=== PATIENT | female | born 1960 | race Caucasian/White ===

== ENCOUNTER 2016-06-21 00:28 | Observation (INO) | payer MEDICARE, BC ==
[2016-06-21] MEDS ORDERED: LABETALOL HCL 5 MG/ML VIAL IV ONE (00:44)
[2016-06-21] MEDS ORDERED: ONDANSETRON HCL/PF 2 MG/ML VIAL IV ONE ×2 (01:01→01:35)
[2016-06-21] MEDS ORDERED: ONDANSETRON HCL/PF 2 MG/ML VIAL ONE ×2 (01:02→01:36)
--- NOTE | 2016-06-21 01:15 | ERNOTE ---
Medical Problem HPI - Narrative Date of Service: 06/21/16 - General Chief Complaint: Screening, Blood Pressure Time Seen by Provider: 06/21/16 00:44 Source: patient Exam Limitations: no limitations - Immun/Allergies/Home Medications Immunizations: IMMUNIZATION HX Immunizations Up to Date Yes History of Influenza Vaccine Yes Hx Pneumococcal Vaccination No Allergies/Adverse Reactions: Allergies No Known Allergies Allergy (Verified 08/07/15 07:55) Home Medications: HOME MEDICATIONS Clonidine HCl [Catapres] 0.4 mg PO TID 06/06/13 [Last Taken Unknown] HYDROcodone/ACETAMINOPHEN [[place] 5-325] 1 tab PO BID PRN 06/06/13 [Last Taken Unknown] Lidocaine [Lidoderm 5%] 1 patch TP DAILY 06/06/13 [Last Taken Unknown] Tramadol HCl [Ultram] 50 mg PO Q6H PRN 06/06/13 [Last Taken Unknown] Atenolol [Tenormin] 100 mg PO BID 04/06/14 [Last Taken Unknown] buPROPion HCL [Wellbutrin Sr, Zyban] 150 mg PO DAILY 04/06/14 [Last Taken Unknown] Diltiazem HCl [Diltiazem 12Hr ER] 60 mg PO BID 07/25/15 [Last Taken Unknown] Furosemide [Lasix] 20 mg PO BID 07/25/15 [Last Taken Unknown] Levothyroxine Sodium [Synthroid] 200 mcg PO DAILY 07/25/15 [Last Taken Unknown] Glucosamine Chondroitin Tab 10/25/15 [Last Taken Unknown] - History of Present History Narrative: 56-year-old female states 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 She noted her blood pressure was elevated. She states her blood pressure normally is 135/80, She arrives to the emergency department with a blood pressure of 262/136 with complaints of headache and nausea. Patient states she has had similar episodes in the past and was hospitalized for 3 days last time. She states she is otherwise in good health and felt well earlier in the day without a cold, cough fever or other constitutional signs or symptoms Timing: constant Severity: moderate Modifying Factors - (Improves): Present: other - nothing Modifying Factors - (Worsens): Present: other - nothing Review of Systems - Review of Systems Constitutional: Present: See HPI EYE: Present: no symptoms reported ENT: Present: no symptoms reported Respiratory: Present: no symptoms reported Cardiology: Present: no symptoms reported Gastrointestinal/Abdominal: Present: no symptoms reported Genitourinary: Present: no symptoms reported Musculoskeletal: Present: no symptoms reported Skin: Present: no symptoms reported Neurological: Present: See HPI, weakness Endocrine: Present: no symptoms reported Hematologic/Lymphatic: Present: no symptoms reported Psych: Present: no symptoms reported - Patient's Past Medical History Patient History - Medical: Headache, Hypothyroidism, Other Patient History - Cancer: Other Patient History - Surgical Procedures: Appendectomy, , D & C, EGD, Hysterectomy, T & A - Social History Living Situations: spouse Smoking Status: Never smoker Have you smoked in the past 12 months: No Do you dip or chew tobacco: No Alcohol Use: none Drug Use: none Physical Exam - Physical Exam General Appearance: Present: alert, mild distress, obese Eye Exam: Normal inspection: bilateral, PERRL: bilateral Ears, Nose, Throat: Present: normal ENT inspection, hearing grossly normal, normal pharynx Neck: Present: normal inspection, nontender Respiratory: Present: no respiratory distress, normal breath sounds, no accessory muscle use, chest nontender, lungs clear Cardiovascular/Chest: Present: no murmur, tachycardia Gastrointestinal/Abdominal: Present: normal bowel sounds, nontender, nondistended, soft, no organomegaly Rectal Exam: Present: deferred Back Exam: Present: normal inspection, normal range of motion, no CVA tenderness , no vertebral tenderness Extremity Exam: Present: normal inspection, non-tender, no edema, normal range of motion Neurological Exam: Present: alert, oriented, normal mood/affect, no motor/ sensory deficits Skin Exam: Present: normal color, warm/dry Lymphatic Exam: Present: no adenopathy ED Progress - Results and Orders Patient's Lab Results:: I have reviewed the patient's lab results. Results and Orders: cbc and chemistries are wnl elevated BNP - Vital Signs Patient's Vital Signs:: I have reviewed the patient's vital signs. Vital Signs: Vital Signs 06/21/16 06/21/16 00:33 01:03 Temperature 36.3 C L Pulse Rate 124 H 104 H Respiratory 16 Rate Blood Pressure 262/136 256/118 O2 Sat by Pulse 97 Oximetry - EKG EKG: supraventricular tachycardia, no ST T wave changes EKG read: Interp. by me - X-Ray X-Ray #1 X-Ray: chest - mild cardiomegaly - Progress/Reassessment Chief Complaint: Screening, Blood Pressure Progress:: Improved Progress Note-Subjective: 06/21/16 02:26 Patient responded to intravenous labetalol but not to an adequate to level and therefore will need to be admitted for further treatment. Her BNP was mildly elevated and CHF may be a component of her hypertension and therefore patient was given 40 mg of Lasix intravenously. CT of the head was done to rule out intracranial bleed or subarachnoid hemorrhage and this appears to be negative Plan - Plan Plan: Patient has responded but only partially to current treatment and therefore she' ll need to be admitted for further treatment. Discussed with the hospitalist Lore Gibbs Departure - Departure Clinical Impression: Hypertensive urgency CHF (congestive heart failure) Qualifiers: Congestive heart failure type: unspecified congestive heart failure type Congestive heart failure chronicity: acute Qualified Code(s): I50.9 - Heart failure, unspecified Cephalgia Qualifiers: Headache type: other vascular headache Qualified Code(s): G44.1 - Vascular headache, not elsewhere classified Disposition: [facility] Condition: Stable Referrals: Curtis Simmons MD [Primary Care Provider] -
[2016-06-21 01:18] LABS: Hematocrit 45.2 % (37.0-47.0); Hemoglobin 14.7 gm/dL (12.5-16.0); Mean Cell Volume 93.8 fl (78-100); Mean Corpuscular Hemoglobin 30.5 pg (27-31); Mean Corpuscular Hgb Conc 32.5 g/dl (32-36); Mean Platelet Volume 9.4 fl (6.0-9.5); Neutrophil # 6.7 K/mm3 (1.3-6.0); Neutrophil % 63.9 % (42-75.0); Platelet Count 279 K/mm3 (150-450); Red Blood Count 4.82 M/mm3 (4.2-5.4); Red Cell Distribution Width 12.8 % (11.5-14.0); White Blood Count 10.5 K/mm3 (4.0-10.5)
[2016-06-21] MEDS ORDERED: MORPHINE SULFATE 2 MG/ML DISP.SYRIN IV ONE (01:36)
[2016-06-21] MEDS ORDERED: MORPHINE SULFATE 4 MG/ML SYRG ONE (01:38)
[2016-06-21 01:39] LABS: Albumin * 3.4 gm/dl (3.4-5.0); Anion Gap 12.5 mmol/L (6.8-13.8); BUN/Creatinine Ratio 13.6 (9.0-21.6); Bilirubin, Total 0.5 mg/dL (0.0-1.1); Ca. Corrected For Albumin 10.2 mg/dL (8.4-10.2); Carbon Dioxide 29.5 mmol/L (24-32.6); Total Protein 7.7 gm/dL (6.2-8.2)
[2016-06-21] MEDS ORDERED: LABETALOL HCL 100 MG in NORMAL SALINE 80 ML IV PRN (01:42)
[2016-06-21] MEDS ORDERED: METOCLOPRAMIDE HCL 5 MG/ML VIAL IV ONE (02:11)
[2016-06-21] MEDS ORDERED: METOCLOPRAMIDE HCL 5 MG/ML VIAL ONE (02:11)
[2016-06-21] MEDS ORDERED: FUROSEMIDE 10 MG/ML VIAL IV ONE (02:19)
[2016-06-21] MEDS ORDERED: FUROSEMIDE 10 MG/ML VIAL ONE (02:22)
[2016-06-21] MEDS ORDERED: MORPHINE SULFATE 2 MG/ML DISP.SYRIN IV PRN (04:39)
[2016-06-21] MEDS ORDERED: ACETAMINOPHEN 325 MG TABLET PO PRN (04:39)
[2016-06-21] MEDS ORDERED: ONDANSETRON HCL/PF 2 MG/ML VIAL IV PRN (04:44)
--- NOTE | 2016-06-21 04:51 | HP ---
<Lore Gibbs - Last Filed: 06/21/16 05:14> Chief Complaint - Chief Complaint Date of Service: 06/21/16 Time of Service: 04:25 Chief Complaint: INGRAM and nausea History of Present Illness: Pt is a 56-year-old female pt of Dr. Mcfarlane with a PMH significant for HTN, hypothyroidism, and remote throat CA. She presented to [facility] ER with complaints of having elevated blood pressure. 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 She noted her blood pressure was elevated when she checked it at home at 262/163, she states her blood pressure normally is 135/80. She took an extra dose of her clonidine 0.4mg and atenolol 100mg at 1030pm without reduction in BP. Denies large salt consumption has been taking medications as prescribed. Denies any other associated symptoms than that already mentioned. Nothing made her symptoms worse or better. Patient states she has had similar episodes 2 in the past about a year and a half apart and was hospitalized for 3 days last time. In the ER she was given 40mg IV lasix and 20mg IV labetolol without reduction in blood pressure followed by 100mg infusion. Chest xray and head CT was without any acute abnormalities. EKG ST rate of 103. Laboratory workup was essentially unremarkable, BNP slightly elevated at 1514. She will be admit to in pt for treatment of hypertensive urgency. - Patient's Past Medical History Patient History - Medical: Headache, Hypothyroidism, Obesity Patient History - Cardiac/Respiratory: Hypertension, Hyperlipidemia Patient History - Cancer: Throat Patient History - Surgical Procedures: Appendectomy, , D & C, EGD, Hysterectomy, Total Knee Replacement, T & A Patient History - Other: None LMP (females 10-50): Menopausal - Family History Mother Family History - Cardiac/Respiratory: CHF Father Family History - Cancer: Lung - Social History Living Situations: spouse Does anyone smoke in the home?: No Smoking Status: Never smoker Have you smoked in the past 12 months: No Do you dip or chew tobacco: No Patient requests Smoking Cessation Consult: No Initiate information on Smoking Cessation: No Alcohol Use: none Drug Use: none - Immunizations Immunizations Up to Date: Yes Hx Pneumococcal Vaccination: No History of Influenza Vaccine: No Review Of Systems (GEN) - Review of Systems Generalized/Overall Review: Present: No Symptoms Reported EENTM: Present: Mouth Pain - dryness Respiratory: Present: No Symptoms Reported Cardiac: Present: No Symptoms Reported Abdominal: Present: Nausea Genitourinary: Present: No Symptoms Reported Musculoskeletal: Present: No Symptoms Reported Neurological: Present: Headache - frontal Skin: Present: No Symptoms Reported Endocrine: Present: No Symptoms Reported Allergies/Adverse Reactions: Allergies Allergy/AdvReac Type Severity Reaction Status Date / Time No Known Allergies Allergy Verified 08/07/15 07:55 Home Medications: HOME MEDICATIONS Clonidine HCl [Catapres] 0.4 mg PO TID 06/06/13 [Last Taken Unknown] HYDROcodone/ACETAMINOPHEN [[place] 5-325] 1 tab PO BID PRN 06/06/13 [Last Taken Unknown] Lidocaine [Lidoderm 5%] 1 patch TP DAILY PRN 06/06/13 [Last Taken Unknown] Tramadol HCl [Ultram] 50 mg PO Q6H PRN 06/06/13 [Last Taken Unknown] Atenolol [Tenormin] 100 mg PO BID 04/06/14 [Last Taken Unknown] Diltiazem HCl [Diltiazem 12Hr ER] 60 mg PO BID 07/25/15 [Last Taken Unknown] Furosemide [Lasix] 20 mg PO BID 07/25/15 [Last Taken Unknown] Levothyroxine Sodium [Synthroid] 200 mcg PO DAILY 07/25/15 [Last Taken Unknown] Glucosamine & Chondroitin Cap cap PO DAILY 10/25/15 [Last Taken Unknown] Exam - Exam Vital Signs: Vital Signs - Last Taken Temp 36.3 C L 06/21/16 00:33 Pulse 96 06/21/16 02:45 Resp 20 06/21/16 02:45 BP 187/89 06/21/16 02:45 Pulse Ox 96 RA 06/21/16 02:45 Constitutional: Present: Alert, Oriented x3, Cooperative, No distress, Morbidly obese ENT Exam: Present: normal ENT inspection, hearing grossly normal Eye Exam: bilateral eye: normal inspection, PERRL Back Exam: Present: no CVA tenderness Respiratory: Present: chest non-tender, normal breath sounds, no respiratory distress, no accessory muscle use, decreased breath sounds Cardiovascular/Chest: Present: normal peripheral pulses, regular rate, rhythm, no chest tenderness, no murmur Peripheral Pulses: dorsalis-pedis (R): 2+, dorsalis-pedis (L): 2+, radial (R): 2 +, radial (L): 2+ Abdomen: Present: Normal bowel sounds, soft, nontender, nondistended, obese Extremity: Present: normal range of motion, non-tender, normal inspection, no pedal edema, no calf tenderness, normal capillary refill Skin Exam: Present: normal color, warm/dry, no cyanosis Neurologic: Present: no motor/sensory deficits, alert, normal mood/affect, oriented x 3 Appearance: Present: appropriate appearance, appropriate insight, neat, no memory impairment Eye contact: Present: cooperative, good eye contact, normal speech Thoughts: Present: normal thought pattern, no apparent hallucination Diagnostic Studies: Laboratory Results Laboratory Tests 06/21/16 06/21/16 06/21/16 01:15 01:15 01:15 WBC 10.5 Hgb 14.7 Hct 45.2 Plt Count 279 Sodium 142 Potassium 4.0 Chloride 104 BUN 16 Creatinine 1.18 AST 19 ALT 29 Alkaline Phosphatase 120 B-Natriuretic Peptide 1514 H TSH Less than 0.007 L Assessment/Plan - Assessment/Plan (1) Hypertensive urgency Assessment: In pt with hyptertensive urgency the blood pressure should usually be lowered to <160/<100 mmHg. However, the mean arterial pressure should not be lowered by more than 25 to 30 percent over this relatively short period of time. Thus, the short-term blood pressure target may need to be above 160/100 mmHg in patients who present with very high pressures. Pt presented with BP of 256/118 at 0100, currently 190's/100's is an acceptable range for now, will slowly lower to less than 160/100 over the remainder of the day. Will continue home medications this am and monitor BP during the day for necessary adjustments. -Atenolol 100mg BID -Clonidine 0.4mg TID -Diltiazem 60mg BID -VS Q2H -Troponin x1 -Continuous telemetry Problem: Acute (2) Nausea Assessment: Stable at this time will continue with PRN zofran, should subside once BP has normalized. Problem: Acute (3) Hypothyroidism Assessment: Stable -Continue Synthroid 200mcg daily -TSH level Problem: Chronic (4) Morbid obesity Problem: Chronic (5) Migraine Assessment: Pt is requesting liquid tylenol for headache, should subside once blood pressure is lowered appropriately. -Tylenol 650mg Q4H PRN -Morphine 4mg Q2H PRN Problem: Acute <Curtis Simmons - Last Filed: 06/21/16 07:50> Immunizations: IMMUNIZATION HX Immunizations Up to Date Yes History of Influenza Vaccine No Hx Pneumococcal Vaccination No Exam - Exam Vital Signs: Vital Signs - Last Taken Temp 36.6 C 06/21/16 06:56 Pulse 95 06/21/16 06:56 Resp 18 06/21/16 06:56 BP 189/73 06/21/16 06:56 Pulse Ox 98 06/21/16 06:56 Diagnostic Studies: Laboratory Results WBC 10.5 K/mm3 (4.0-10.5) 06/21/16 01:15 RBC 4.82 M/mm3 (4.2-5.4) 06/21/16 01:15 Hgb 14.7 gm/dL (12.5-16.0) 06/21/16 01:15 Hct 45.2 % (37.0-47.0) 06/21/16 01:15 MCV 93.8 fl (78-100) 06/21/16 01:15 MCH 30.5 pg (27-31) 06/21/16 01:15 MCHC 32.5 g/dl (32-36) 06/21/16 01:15 RDW 12.8 % (11.5-14.0) 06/21/16 01:15 Plt Count 279 K/mm3 (150-450) 06/21/16 01:15 MPV 9.4 fl (6.0-9.5) 06/21/16 01:15 Immature Gran % (Auto) 0.30 % (0.001-0.429) 06/21/16 01:15 Immature Gran # (Auto) 0.03 K/mm3 (0.000-0.0310) 06/21/16 01:15 Neutrophils % 63.9 % (42-75.0) 06/21/16 01:15 Lymphocytes % 23.5 % (20-51) 06/21/16 01:15 Monocytes % 11.0 % (0.0-9) H 06/21/16 01:15 Eosinophils % 0.8 % (0.0-3.0) 06/21/16 01:15 Basophils % 0.5 % (0.0-1.0) 06/21/16 01:15 Nucleated RBC % 0.0 k/mm3 (0-1) 06/21/16 01:15 Neutrophils # 6.7 K/mm3 (1.3-6.0) H 06/21/16 01:15 Lymphocytes # 2.5 k/mm3 (1.5-3.5) 06/21/16 01:15 Monocytes # 1.2 k/mm3 (0.0-1.0) H 06/21/16 01:15 Eosinophils # 0.1 k/mm3 (0.0-0.7) 06/21/16 01:15 Absolute Basophils 0.1 k/mm3 (0.0-0.1) 06/21/16 01:15 Sodium 142 mmol/L (132-142) 06/21/16 01:15 Plasma Sodium 143 mmol/L (130-142) H 06/21/16 01:15 Potassium 4.0 mmol/L (3.4-4.6) 06/21/16 01:15 Chloride 104 mmol/L (97-106) 06/21/16 01:15 Carbon Dioxide 29.5 mmol/L (24-32.6) 06/21/16 01:15 Anion Gap 12.5 mmol/L (6.8-13.8) 06/21/16 01:15 BUN 16 mg/dL (3-23) 06/21/16 01:15 Creatinine 1.18 mg/dL (0.4-1.4) 06/21/16 01:15 Est GFR (Non-Af Amer) 50 mL/min (60-130) L 06/21/16 01:15 BUN/Creatinine Ratio 13.6 (9.0-21.6) 06/21/16 01:15 Random Glucose 135 mg/dL (70-110) H 06/21/16 01:15 Calcium 10.0 mg/dL (7.9-10.9) 06/21/16 01:15 Calcium Adj for Albumin 10.2 mg/dL (8.4-10.2) 06/21/16 01:15 Total Bilirubin 0.5 mg/dL (0.0-1.1) 06/21/16 01:15 AST 19 U/L (0-48) 06/21/16 01:15 ALT 29 U/L (19-67) 06/21/16 01:15 Alkaline Phosphatase 120 U/L (50-170) 06/21/16 01:15 Troponin I 0.019 ng/ml (0.00-0.10) 06/21/16 01:15 B-Natriuretic Peptide 1514 pg/mL (5-205) H 06/21/16 01:15 Total Protein 7.7 gm/dL (6.2-8.2) 06/21/16 01:15 Albumin 3.4 gm/dl (3.4-5.0) 06/21/16 01:15 TSH Less than 0.007 uIU/mL (0.358-3.74) L 06/21/16 01:15 Assessment/Plan - Procedures Results: The 100 mg infusion referred to in the HPI was Labetolol given in saline slowly IV X1 following the initial 20 mg IV dose. Patient has had headaches since she was in her 30's, but none of her family have headaches (except for her daughter , who got them from her father's side.). Madelyn has had high blood pressure episodes like this in the past. Her headaches are USUALLY in association with this high blood pressure. She has been checked for pheochromocytoma in the past , but this has not been found. Last year she had her uterus and ovaries removed and also a successful distal esophageal dilatation. We will check an echo as an outpatient next week because of her elevated BNP. We will repeat labs including troponin tomorrow morning. We will make the Lasix she takes routine and not prn, increase diltiazem slightly and add spironolactone for her high blood pressure. I personally directed all of [facility]'s care for this patient. I reviewed the record and examined the patient.
[2016-06-21] MEDS ORDERED: ACETAMINOPHEN 160 MG/5 ML BTL PO PRN (05:05)
[2016-06-21] MEDS ORDERED: MORPHINE SULFATE 4 MG/ML SYRG IV PRN (05:11)
[2016-06-21] MEDS ORDERED: FUROSEMIDE 20 MG TABLET PO PRN (06:53)
[2016-06-21] MEDS ORDERED: HYDROcodone/ACETAMINOPHEN 1 EACH TABLET PO PRN (06:53)
[2016-06-21] MEDS ORDERED: traMADol HCL 50 MG TABLET PO PRN (06:53)
[2016-06-21] MEDS ORDERED: LIDOCAINE 1 PATCH ADH..PATCH TP PRN (06:53)
[2016-06-21] MEDS: ENOXAPARIN SODIUM 40 MG/0.4 ML SYRG SC SCH (08:23)
[2016-06-21] MEDS: LEVOTHYROXINE SODIUM 100 MCG TABLET PO SCH (08:25)
[2016-06-21] MEDS: CLONIDINE HCL 0.2 MG TABLET PO SCH ×3 (08:26→17:10)
[2016-06-21] MEDS: ATENOLOL 100 MG TABLET PO SCH ×2 (08:26→20:44)
[2016-06-21] MEDS ORDERED: DILTIAZEM HCL 60 MG CAP.SR.12H PO SCH ×2 (09:00)
[2016-06-21] MEDS ORDERED: DILTIAZEM HCL 90 MG CAP.SR.12H PO SCH (09:00)
[2016-06-21] MEDS ORDERED: SPIRONOLACTONE 25 MG TABLET PO SCH (09:00)
[2016-06-21] MEDS ORDERED: FUROSEMIDE 20 MG TABLET PO SCH (09:00)
[2016-06-21] MEDS: DILTIAZEM HCL 60 MG TABLET PO SCH (20:44)
[2016-06-21] MEDS ORDERED: SENNOSIDES/DOCUSATE SODIUM 1 TAB TABLET PO SCH (21:00)
[2016-06-22 05:46] LABS: Hematocrit 41.3 % (37.0-47.0); Hemoglobin 13.6 gm/dL (12.5-16.0); Mean Cell Volume 93.2 fl (78-100); Mean Corpuscular Hemoglobin 30.7 pg (27-31); Mean Corpuscular Hgb Conc 32.9 g/dl (32-36); Mean Platelet Volume 9.7 fl (6.0-9.5); Neutrophil # 5.5 K/mm3 (1.3-6.0); Neutrophil % 63.6 % (42-75.0); Platelet Count 272 K/mm3 (150-450); Red Blood Count 4.43 M/mm3 (4.2-5.4); Red Cell Distribution Width 12.9 % (11.5-14.0); White Blood Count 8.6 K/mm3 (4.0-10.5)
[2016-06-22 06:04] LABS: ALT 24 U/L (19-67); AST 16 U/L (0-48); Alkaline Phosphatase * 114 U/L (50-170); Anion Gap 13.5 mmol/L (6.8-13.8); BUN/Creatinine Ratio 14.1 (9.0-21.6); Bilirubin, Total 0.8 mg/dL (0.0-1.1); Blood Urea Nitrogen 14 mg/dL (3-23); Ca. Corrected For Albumin 10.3 mg/dL (8.4-10.2); Calcium * 9.8 mg/dL (7.9-10.9); Carbon Dioxide 29.2 mmol/L (24-32.6); Chloride 101 mmol/L (97-106); Glucose * 112 mg/dL (70-110); Potassium 3.7 mmol/L (3.4-4.6); Sodium 140 mmol/L (132-142); Total Protein 6.8 gm/dL (6.2-8.2); Troponin I Less than 0.017 ng/ml (0.00-0.10)
[2016-06-22] MEDS: LEVOTHYROXINE SODIUM 100 MCG TABLET PO SCH (06:32)
[2016-06-22 06:55] VITALS: BP 120/53
--- NOTE | 2016-06-22 07:42 | DS ---
(1) Cephalgia Problem: Acute Qualifiers: Headache type: other vascular headache Qualified Code(s): G44.1 - Vascular headache, not elsewhere classified (2) Hypertensive urgency Problem: Acute (3) Hypothyroidism Problem: Chronic Qualifiers: Hypothyroidism type: acquired Qualified Code(s): E03.9 - Hypothyroidism, unspecified (4) Morbid obesity Problem: Chronic Qualifiers: Obesity type: due to excess calories Qualified Code(s): E66.01 - Morbid ( severe) obesity due to excess calories Description of Stay: Following admission, this patient's headache went away and her blood pressure came down to almost subnormal. She has headaches perhaps 2 times per year. As she recalls, she has never had a high blood pressure episode that was not associated with the headache. The headache starts first, then the high blood pressure then the other symptoms. I think the next time around, we ought to try making her headache go away and see if her blood pressure comes down rather than working on making her blood pressure come down and therefore seeing if her headache goes away. It was noted on this admission that her TSH was very low. We are treating hypothyroidism with pharmacologic thyroid medication, so we will decrease the dose and follow-up with a thyroid blood test in one month. She will follow-up with me in the office in one week. Procedures Performed: none Discharge Disposition: Home self care Disposition: Home self-care Condition: Stable Discharge Activity: Activity as tolerated Discharge Diet: General/regular food Referrals: Curtis Simmons MD [Primary Care Provider] - Problem Oriented Discharge Instructions to Patient/Family: Migraine Headache, [id number], Hypertension, [id number], Hypothyroidism Additional Patient Instructions (free text): TSH and free T4 blood test in [address] Mcfarlane in 1 week. Prescriptions (Any new or edited meds): Furosemide [Lasix] 20 mg PO BID PRN #1 tablet PRN Reason: fluid Levothyroxine Sodium [Levo-T] 150 mcg PO DAILY #30 tablet Complete Home Medications List: Complete Home Medication List: Clonidine HCl [Catapres] 0.4 mg PO TID 06/06/13 HYDROcodone/ACETAMINOPHEN [[place] 5-325] 1 tab PO BID PRN 06/06/13 Lidocaine [Lidoderm 5%] 1 patch TP DAILY PRN 06/06/13 Tramadol HCl [Ultram] 50 mg PO Q6H PRN 06/06/13 Atenolol [Tenormin] 100 mg PO BID 04/06/14 Diltiazem HCl [Diltiazem 12Hr ER] 60 mg PO BID 07/25/15 Glucosamine & Chondroitin Cap cap PO DAILY 10/25/15 Acetaminophen [Tylenol 160 MG/5 Ml Liquid] 650 mg PO Q6H PRN #0 btl 06/22/16 Furosemide [Lasix] 20 mg PO BID PRN #1 tablet 06/22/16 Levothyroxine Sodium [Levo-T] 150 mcg PO DAILY #30 tablet 06/22/16 Sennosides/Docusate Sodium [Senokot-S] 2 tab PO HS tablet 06/22/16
[2016-06-22] MEDS: DILTIAZEM HCL 60 MG TABLET PO SCH (08:35)
[2016-06-22] MEDS: ENOXAPARIN SODIUM 40 MG/0.4 ML SYRG SC SCH (08:36)
[2016-06-22] MEDS: ATENOLOL 100 MG TABLET PO SCH (08:36)
[2016-06-22] MEDS: CLONIDINE HCL 0.2 MG TABLET PO SCH (08:39)
== END 2016-06-22 10:07 | disposition home or self-care (01) ==
LOC: ER 00:28 → MS 02:32 → INTOOBSV 02:32
PROVIDERS: ADMIT Nurse Practitioner Gerontology; ATTEND Allergy & Immunology
DX: I16.0 Hypertensive urgency (principal); G44.1 Vascular headache, not elsewhere classified; E03.9 Hypothyroidism, unspecified; E66.01 Morbid (severe) obesity due to excess calories
CPT/HCPCS: 36415; 70450; 71010; 80053; 83880; 84443; 84484; 85025; 93005; 96365; 96372; 96375; 99284; G0378